=== PATIENT | female | born 1955 | race Caucasian/White ===

== ENCOUNTER → 2017-02-02 | Outpatient (CLI) | payer OTHER ==
[~2017-02-02] VITALS: Ht 165.1 cm; Wt 122.5 kg
[~2017-02-02] MED LIST: BRINTELLIX10 MG PO; CELEBREX 200 M200 MG PO; DIPHENHIST50 MG PO; DOXYCYCLINE 10100 MG PO; FLEXERIL PO; HYDROCODON-ACE1 EAC7 PO; LOPRESSOR25 PO; LUNESTA3 MG PO; LYRICA 50 MG50 MG PO; NEURONTIN 300300 M1 PO; NEURONTIN600 MG PO; NEXIUM40 MG PO; RESTORIL30 MG PO
--- NOTE | ~2017-02-02 | P ---
[facility] [place] [address] PROCEDURE REPORT Name: ANAOLAF C Room #: REG [facility]#: [id number] Admission: 02/02/17 Attend Phys: Henrik Luevano MD Discharge: Date of : 57 Report #: [id number] THIS REPORT FOR: //name// CC: Henrik Pepe DATE OF SERVICE: 02/02/2017 BRIEF HISTORY: The patient is a 61-year-old woman with rectal bleeding. She has had rectal bleeding on and off for years. Last colonoscopy was 8 years ago. PREOPERATIVE DIAGNOSIS: Rectal bleeding. POSTOPERATIVE DIAGNOSES: 1. Multiple colon polyps. 2. Diverticulosis coli. 3. Internal hemorrhoids with prolapse. MEDICATIONS: Deep sedation with propofol per anesthesia. SPECIMEN: 1. Cecal polyp. 2. Proximal ascending colon polyp. 3. Hepatic flexure polyps x 2. 4. Polyps x 2 at 80 cm. 5. Polyp at 60 cm. ESTIMATED BLOOD LOSS: 3 mL. PROCEDURE: Colonoscopy to cecum and terminal ileum with snare polypectomy and biopsy. FINDINGS: Prior to propofol sedation, procedure of colonoscopy discussed with the patient as well as potential risks and its complications. She indicates she understands and desires to proceed. DESCRIPTION OF PROCEDURE: With the patient in left lateral decubitus position, digital examination was completed which revealed no abnormalities. Subsequently, [employer] video colonoscope was introduced into the rectum, advanced under direct vision to the cecum. She had tortuous redundant colon which made forward advancement slow and tedious. However, we were able to reach the cecum, which was identified by the appendiceal orifice and the ileocecal valve. I was able to very briefly advance the mouth of the scope into the ileocecal valve and see a villous pattern, but due to looping of scope, I was not able to deeply cannulate the ileum. At that point, the scope was slowly withdrawn and careful [facility] [address] [place] [address] PROCEDURE REPORT Name: OLAF PEREZ Linda Room #: REG [facility] Albert.#: [id number] Admission: 02/02/17 Attend Phys: Henrik Luevano MD Discharge: Date of : 57 Report #: [id number] circumferential views obtained. In the cecum, a 4 x 5 mm sessile polyp was seen and removed by cold snare polypectomy. In the proximal ascending colon, a 4 x 6 mm sessile polyp seen and also removed by cold snare polypectomy. As we withdrew the scope, 2 diminutive polyps were seen and removed by biopsy at the hepatic flexure. As we withdrew the scope further, at 80 cm, 2 more diminutive polyps were seen and removed by biopsy and another diminutive polyp was seen and removed by biopsy at 60 cm. Scope was further withdrawn and no additional polyps were seen. However, she was noted to have a mild sigmoid diverticular disease without endoscopic evidence of diverticulitis. Scope was withdrawn in the rectum. Upon retroflexion, there were noted to be internal hemorrhoids, which appeared to be inflamed and superficially ulcerated. There was also erythema of the surrounding mucosa suggestive of rectal mucosa prolapse as well as prolapse of the hemorrhoids. Scope was withdrawn. The patient tolerated the procedure well. CONDITION OF THE PATIENT UPON DISCHARGE: Following procedure, the patient drowsy. She will be discharged home when fully ambulatory. INSTRUCTIONS TO THE PATIENT AND FAMILY AT THE TIME OF DISCHARGE: The patient with multiple polyps as noted above. We will follow up on the path and make surveillance recommendations. However, in view of the large number of polyps and tortuosity of her colon, have her return in 3 years for followup colon exam. Bleeding is likely from the hemorrhoids. I think she also has some mucosal prolapse as well. Suggest fiber product and/or MiraLax as needed for constipation. We will place her on Anusol-HC suppositories for hemorrhoids. I would suggest she see a surgeon about surgical management of the hemorrhoids since she has had bleeding on and off for years. Again, we will make further recommendations after reviewing the path report. Last colonoscopy was more than 8 years ago. Withdrawal time from the cecum was 25 minutes. <ELECTRONICALLY SIGNED> By: Henrik Luevano MD 02/02/17 [id number] Henrik Luevano MD /nt
--- NOTE | ~2017-02-02 | S ---
[facility] [place] [address] SURGICAL PATH RPT PROCEDURE Name: OLAF PEREZ Room #: REG Paula Albert.#: [id number] Admission: 02/02/17 Date of : 57 Discharge: Report #: [id number] Path Case #: [id number] PATHOLOGY REPORT COLLECTION DATE: 02/02/2017 RECEIVED DATE: 02/02/2017 SUBMITTING PHYS: Dr. Henrik Luevano OTHER PHYS: Dr. Jeri Pepe SPECIMEN(S) RECEIVED: A.Polyp at cecum B.Polyp at proximal ascending colon C.Polyp at hepatic flexure x2 D.Polyp at 80 cm x2 E.Polyp at 60 cm * * * * * * * * * * * * FINAL DIAGNOSIS: A. "Polyp at cecum", biopsy: - Tubular adenoma; no high grade dysplasia. B. "Polyp at proximal ascending colon", biopsy: - Tubular adenoma; no high grade dysplasia. C. "Polyp at hepatic flexure x2", biopsy: - Tubular adenoma; no high grade dysplasia. D. "Polyp at 80 cm x2", biopsy: - Tubular adenoma; no high grade dysplasia. E. "Polyp at 60 cm", biopsy: - Tubular adenoma; no high grade dysplasia. (CLW:deedee; d/t: 02/05/2017) PATHOLOGIST: Rasheeda Moyer M.D. REPORT ELECTRONICALLY SIGNED BY: Rasheeda Moyer M.D. DATE/TIME: 02/05/2017 14:53 * * * * * * * * * * * * GROSS PATHOLOGY: A. Received in formalin labeled "Marni, Olaf and polyp at cecum," is a segment of whiting soft tissue measuring 0.3 cm in maximum dimension. The specimen is submitted entirely in cassette A1. B. Received in formalin labeled "Marni, Olaf and polyp at proximal ascending," are multiple segments of whiting soft tissue measuring 2.3 x 0.5 x 0.3 cm in aggregate dimensions and ranging from 0.2 to 0.5 cm in maximum dimension. The specimen is submitted entirely in cassette B1. C. Received in formalin labeled "[place], Olaf and polyp at hepatic flexure," are 5 segments of whiting soft tissue measuring 1.7 x 0.2 x [address] [address] SURGICAL PATH RPT PROCEDURE Name: OLAF PEREZ Room #: [facility].#: [id number] Admission: 02/02/17 Date of : 57 Discharge: Report #: [id number] Path Case #: [id number] cm in aggregate dimensions and ranging from 0.3 to 0.5 cm in maximum dimension. The specimen is submitted entirely in cassette C1. D. Received in formalin labeled "Marni, Olaf and polyp at 80 cm," are 3 segments of whiting soft tissue measuring 1.0 x 0.3 x 0.2 cm in aggregate dimensions and ranging from 0.3 to 0.4 cm in maximum dimension. The specimen is submitted entirely in cassette D1. E. Received in formalin labeled "Marni, Olaf and polyp at 60 cm," are 3 segments of whiting soft tissue measuring 1.0 x 0.2 x 0.2 cm in aggregate dimensions and ranging from 0.3 to 0.4 cm in maximum dimension. The specimen is submitted entirely in cassette E1. (TTL; 02/02/2017) CLINICAL HISTORY: Rectal bleeding INITIAL CPT CODE(S): A; 86218 B; 54390 C; 19765 D; 55431 E; 93957 Professional services performed by [facility] at [facility] [address], [place] [address] Technical services performed by [facility] at [address] [place] [address], [address], [place] [address]. [facility] [address] [place] [address] PHONE: [phone] DIRECTOR: Lucho Felton M.D. * * * END OF REPORT * * *
== END | disposition home or self-care (01) ==
LOC: GI 09:04
DX: D12.0 Benign neoplasm of cecum (principal); D12.2 Benign neoplasm of ascending colon; D12.3 Benign neoplasm of transverse colon; D12.4 Benign neoplasm of descending colon; K57.30 Diverticulosis of large intestine without perforation or abscess without bleeding; K64.8 Other hemorrhoids; I10 Essential (primary) hypertension; K21.9 Gastro-esophageal reflux disease without esophagitis; Z96.653 Presence of artificial knee joint, bilateral; Z98.890 Other specified postprocedural states